=== PATIENT | male | born 1985 | race Caucasian/White ===

== ENCOUNTER 2020-10-03 19:10 | Emergency (ER) | payer BC ==
[2020-10-03] MEDS: Lidocaine 1% 30 ML SDV INJECT ONE (20:48)
[2020-10-03] MEDS: Bacitracin Oint 1 GM U/D Packet TOP ONE (20:48)
--- NOTE | 2020-10-03 21:13 | EDM.PDOC ---
ED HPI GENERAL MEDICAL PROBLEM - General Chief Complaint: Laceration Stated Complaint: CUT ON RIGHT RING FINGER Time Seen by Provider: 10/03/20 20:20 Source of Information: Reports: Patient History Limitations: Reports: No Limitations - History of Present Illness INITIAL COMMENTS - FREE TEXT/NARRATIVE: Reports lac to right ring finger slammed in when wind caught door, Large gold ring removed by patient prior to arrival. Patient states ring took most of pressure and was oval shaped when able to get ring off. Denies pain in "bony area with movement", Tetnus current - Related Data Allergies Allergy/AdvReac Type Severity Reaction Status Date / Time trimethoprim Allergy Mild Hives Verified 10/03/20 20:59 sulfamethoxazole Allergy Hives Verified 10/03/20 21:00 [From Sulfamethoxazole-Trimethoprim] Home Meds: Home Meds Dextroamphetamine/Amphetamine [Adderall 10 mg Tablet] 10/03/20 [History] Venlafaxine HCl 10/03/20 [History] ED ROS GENERAL - Review of Systems Review Of Systems: Comprehensive ROS is negative, except as noted in HPI. ED EXAM, SKIN/RASH Exam: See Below Exam Limited By: No Limitations General Appearance: Alert, No Apparent Distress Eye Exam: Bilateral Eye: PERRL Ears: Hearing Grossly Normal Throat/Mouth: Normal Voice Head: Atraumatic, Normocephalic Neck: Normal Inspection Respiratory/Chest: No Respiratory Distress Cardiovascular: Normal Peripheral Pulses Extremities: Other (Mild swelling right 4th MIP full ROM) Neurological: Alert, Oriented Psychiatric: Normal Affect, Normal Mood Skin: Warm, Wound/Incision (laceration Right 4th finger MIP palmar 1cm superficial no active bleeding , dorsal mMIP .3cm superficial ) ED SKIN PROCEDURES - Laceration/Wound Repair Right Middle Digit - 4th (Ring) Appearance: Superficial (horizontal MIP ) Distal NVT: Neuro & Vascular Intact, No Tendon Injury Anesthetic Type: Local Local Anesthesia - Lidocaine (Xylocaine): 1% Plain Local Anesthetic Volume: 1cc Skin Prep: Chlorhexidine (Hibiciens), Saline Closed with: Sutures Lac/Wound length In cm: 1 Suture Size: 4-0 # of Sutures: 2 Suture Type: Nylon, Interrupted Course - Vital Signs Last Recorded V/S: Last Vital Signs Temp 97.5 F 10/03/20 20:00 Pulse 96 10/03/20 20:00 Resp 16 10/03/20 20:00 BP 141/93 H 10/03/20 20:00 Pulse Ox 96 10/03/20 20:00 - Orders/Labs/Meds Meds: Medications Discontinued Medications Generic Name Dose Route Start Last Admin Trade Name Maggy PRN Reason Stop Dose Admin Bacitracin 1 dose 10/03/20 20:33 10/03/20 20:48 Bacitracin Oint 1 Gm U/D Packet TOP 10/03/20 20:34 1 dose ONETIME ONE Administration Cephalexin 500 mg 10/03/20 21:15 10/03/20 21:21 Cephalexin 500 Mg Cap PO 10/03/20 21:16 500 mg ONETIME ONE Administration Lidocaine HCl 30 ml 10/03/20 20:33 10/03/20 20:48 Lidocaine 1% 30 Ml Sdv INJECT 10/03/20 20:34 30 ml ONETIME ONE Administration Departure - Departure Time of Disposition: 21:06 Disposition: Home, Self-Care 01 Condition: Good Clinical Impression: Contusion Laceration of finger of right hand Qualifiers: Encounter type: initial encounter Finger: ring finger Damage to nail status: without damage Foreign body presence: without foreign body Qualified Code(s): S61.214A - Laceration without foreign body of right ring finger without damage to nail, initial encounter - Discharge Information *PRESCRIPTION DRUG MONITORING PROGRAM REVIEWED*: No *COPY OF PRESCRIPTION DRUG MONITORING REPORT IN PATIENT YARA: No Instructions: Sutures, [place], or Adhesive Wound Closure, [id number] Forms: ED Department Discharge Additional Instructions: keep clean and dry cover with bandaide dressing, may be open to air at night antibiotic ointment twice daily sutures out 10-14 days elevate to decrease swelling follow up if increased redness swelling or pain keflex 500mg one three times daily x 7 days Sepsis Event Note (ED) - Evaluation Sepsis Screening Result: No Definite Risk
[2020-10-03] MEDS: Cephalexin 500 MG Cap PO ONE (21:21)
--- NOTE | 2020-10-03 21:22 | CR ---
PROCEDURE INFORMATION: Exam: XR Right Hand Exam date and time: 10/03/2020 8:41 PM Age: 35 years old Clinical indication: Other: 4th finger; Additional info: Slammed in car door TECHNIQUE: Imaging protocol: XR Right hand. Views: 3 or more views. COMPARISON: No relevant prior studies available. FINDINGS: Bones/joints: Normal. Soft tissues: Soft tissue swelling of the 4th finger. No foreign body. IMPRESSION: 1. No fracture or dislocation. 2. Soft tissue swelling 4th finger without foreign body.
== END 2020-10-03 21:27 | disposition home or self-care (01) ==
LOC: DL.ED 19:10
DX: S61.214A Laceration without foreign body of right ring finger without damage to nail, initial encounter (principal); Z88.1 Allergy status to other antibiotic agents; W26.8XXA Contact with other sharp object(s), not elsewhere classified, initial encounter
CPT/HCPCS: 12001; 73130; 99283; A9270